=== PATIENT | female | born 1995 | race Caucasian/White ===

== ENCOUNTER → 2016-12-24 | Outpatient (REF) | payer OTHER | LOC: M LAB REF 20:05 | PROVIDERS: ATTEND Physician Assistant | DX: N39.0 Urinary tract infection, site not specified (principal) ==

== ENCOUNTER 2017-05-29 20:01 | Emergency (ER) | payer OTHER ==
[~2017-05-29] VITALS: Ht 167.6 cm; Wt 81.8 kg
[2017-05-29 20:01] VITALS: BP 137/89
[2017-05-29] MEDS ORDERED: IBUPROFEN 800 MG TAB PO ONE (21:15)
--- NOTE | 2017-05-30 07:31 | REP ---
Left wrist four views : There is no fracture or dislocation. Mineralization and joint spaces are normal. There are no calcifications or foreign bodies. Impression: Negative left wrist . Signed by Dilip Tate MD 05/30/2017 07:21 A
== END 2017-05-29 21:30 | disposition home or self-care (01) ==
LOC: M ED 20:01
DX: S63.502A Unspecified sprain of left wrist, initial encounter (principal); W00.9XXA Unspecified fall due to ice and snow, initial encounter; Y92.838 Other recreation area as the place of occurrence of the external cause; Y93.23 Activity, snow (alpine) (downhill) skiing, snowboarding, sledding, tobogganing and snow tubing; Y99.8 Other external cause status; F17.210 Nicotine dependence, cigarettes, uncomplicated

== ENCOUNTER 2017-10-04 07:27 | Emergency (ER) | payer OTHER ==
[2017-10-04] MEDS ORDERED: LIDOCAINE W/EPINEPHRINE 1% 20ML VIAL As Ordered (07:44)
[2017-10-04] MEDS: LIDOCAINE W/EPINEPHRINE 1% 20ML VIAL SC (08:05)
== END 2017-10-04 08:38 | disposition home or self-care (01) ==
LOC: M ED 07:27
DX: L02.411 Cutaneous abscess of right axilla (principal); Z87.2 Personal history of diseases of the skin and subcutaneous tissue
CPT/HCPCS: 87186

== ENCOUNTER → 2017-11-20 | Outpatient (REF) | payer OTHER | LOC: M LAB REF 19:41 | DX: N39.0 Urinary tract infection, site not specified (principal) | CPT/HCPCS: 87086 ==

== ENCOUNTER 2018-02-06 10:58 | Emergency (ER) | payer OTHER ==
[2018-02-06] MEDS: NORCO, ANEXSIA 5/325MG TABLET (HYDROcodone/ACETAMINOPHEN) PO (11:18)
== END 2018-02-06 11:40 | disposition home or self-care (01) ==
LOC: M ED 10:58
DX: S60.221A Contusion of right hand, initial encounter (principal); W22.8XXA Striking against or struck by other objects, initial encounter; Y92.009 Unspecified place in unspecified non-institutional (private) residence as the place of occurrence of the external cause; F17.200 Nicotine dependence, unspecified, uncomplicated; Z79.2 Long term (current) use of antibiotics; Z79.899 Other long term (current) drug therapy
CPT/HCPCS: 73130

== ENCOUNTER 2018-05-19 22:29 | Inpatient (IN) | payer OTHER ==
[2018-05-19 23:31] LABS: HEMOGLOBIN 13.8 g/dl (12.0-15.5); MEAN CORPUSCULAR HEMOGLOBIN 27.8 pg (27.0-33.0); MEAN CORPUSCULAR HGB CONC 32.1 g/dl (32.0-36.5); MEAN CORPUSCULAR VOLUME 86.7 fl (80.0-96.0); PLATELET COUNT, AUTOMATED 346 10^3/uL (150-450); RED BLOOD COUNT 4.96 10^6/uL (4.00-5.40); RED CELL DISTRIBUTION WIDTH 16.4 % (11.5-14.5); WHITE BLOOD COUNT 9.6 10^3/uL (4.0-10.0)
[2018-05-19 23:48] LABS: CONTROL LINE HCG INT CTR LINE PRESENT; HCG, SERUM QUALITATIVE NEGATIVE (NEGATIVE)
[2018-05-19 23:57] LABS: AMPHETAMINES LEVEL URINE NEGATIVE (NEGATIVE); BARBITURATES URINE NEGATIVE (NEGATIVE); BENZODIAZEPINES URINE NEGATIVE (NEGATIVE); CANNABINOIDS URINE NEGATIVE (NEGATIVE); COCAINE METABOLITE URINE NEGATIVE (NEGATIVE); METHADONE URINE NEGATIVE (NEGATIVE); OPIATES URINE NEGATIVE (NEGATIVE); PHENCYCLIDINE URINE NEGATIVE (NEGATIVE)
[2018-05-20 00:05] LABS: ACETAMINOPHEN LEVEL < 2.0 UG/ML (10.0-30.0); ALBUMIN 4.1 GM/DL (3.2-5.2); ALBUMIN/GLOBULIN RATIO 1.08 (1.00-1.93); ALKALINE PHOSPHATASE 97 U/L (45-117); ALT/SGPT 28 U/L (12-78); ANION GAP 10 MEQ/L (8-16); AST/SGOT 17 U/L (7-37); BILIRUBIN,DIRECT < 0.1 MG/DL (0.0-0.2); BILIRUBIN,TOTAL 0.3 MG/DL (0.2-1.0); BLOOD UREA NITROGEN 14 MG/DL (7-18); CALCIUM LEVEL 8.8 MG/DL (8.5-10.1); CARBON DIOXIDE LEVEL 24 MEQ/L (21-32); CHLORIDE LEVEL 112 MEQ/L (98-107); CREATININE FOR GFR 0.91 MG/DL (0.55-1.30); ETHYL ALCOHOL (ETHANOL) 0.261 % (0.000-0.010); GLOMERULAR FILTRATION RATE > 60.0 (>60); GLUCOSE, FASTING 104 MG/DL (70-100); POTASSIUM SERUM 4.5 MEQ/L (3.5-5.1); SALICYLATE LEVEL < 1.7 MG/DL (5.0-30.0); SODIUM LEVEL 146 MEQ/L (136-145); TOTAL PROTEIN 7.9 GM/DL (6.4-8.2)
[2018-05-20] MEDS ORDERED: MAALOX 30 ML SUSP *UDC PO (11:30)
[2018-05-20] MEDS ORDERED: MOM 30ML SUSPENSION UDC PO (11:30)
[2018-05-20] MEDS ORDERED: ACETAMINOPHEN TAB 650MG DOSE (2X325MG) PO (11:30)
[2018-05-20] MEDS ORDERED: traZODone 50 MG TAB PO (11:30)
[2018-05-20] MEDS ORDERED: LORazepam 2 MG TAB PO (11:30)
[2018-05-20] MEDS: FOLIC ACID 1 MG TAB PO (13:33)
[2018-05-20] MEDS: THIAMINE 100 MG TAB PO ×2 (13:33→21:00)
[2018-05-20] MEDS: MULTIVITAMINS/MINERALS THERAP 1 TAB PO (13:33)
[2018-05-20] MEDS: LORazepam 1 MG TAB PO (13:33)
[2018-05-21 07:40] LABS: ANION GAP 8 MEQ/L (8-16); BLOOD UREA NITROGEN 12 MG/DL (7-18); CALCIUM LEVEL 8.6 MG/DL (8.5-10.1); CARBON DIOXIDE LEVEL 25 MEQ/L (21-32); CHLORIDE LEVEL 102 MEQ/L (98-107); CREATININE FOR GFR 0.95 MG/DL (0.55-1.30); GLOMERULAR FILTRATION RATE > 60.0 (>60); GLUCOSE, FASTING 92 MG/DL (70-100); POTASSIUM SERUM 3.6 MEQ/L (3.5-5.1); SODIUM LEVEL 135 MEQ/L (136-145)
[2018-05-21] MEDS: FOLIC ACID 1 MG TAB PO (09:00)
[2018-05-21] MEDS: THIAMINE 100 MG TAB PO (09:00)
[2018-05-21] MEDS: MULTIVITAMINS/MINERALS THERAP 1 TAB PO (09:00)
[2018-05-21] MEDS: INFLUENZA QUADRIVALENT PF VACCINE 0.5ML SYRINGE (90686) IM (09:40)
== END 2018-05-21 13:45 | disposition home or self-care (01) | DRG 881 ==
LOC: M ED 22:29 → M ED INP 05-20 11:20 → M PSY 05-20 12:25
DX: F32.9 Major depressive disorder, single episode, unspecified (principal); E87.0 Hyperosmolality and hypernatremia; F10.10 Alcohol abuse, uncomplicated; F17.210 Nicotine dependence, cigarettes, uncomplicated; Z79.3 Long term (current) use of hormonal contraceptives

== ENCOUNTER → 2018-11-15 | Outpatient (CLI) | payer OTHER ==
[~2018-11-15] MED LIST: BACT800T5 PO; CLIN150C14; HYDR-3715 PO; MIRE1IUD; RIFA300C3
--- NOTE | 2018-11-15 19:49 | REP ---
REASON: Trauma. FINDINGS: No acute fracture or destructive osseous lesion. Electronically Signed by Mckinley Barkley DO 11/15/2018 07:51 P
== END ==
LOC: M LRY 18:21
PROVIDERS: ATTEND Physician Assistant
DX: S69.91XA Unspecified injury of right wrist, hand and finger(s), initial encounter (principal); X58.XXXA Exposure to other specified factors, initial encounter; Y92.89 Other specified places as the place of occurrence of the external cause
CPT/HCPCS: 73140; J1885

== ENCOUNTER 2019-02-27 09:32 | Emergency (ER) | payer OTHER ==
[~2019-02-27] VITALS: Ht 167.6 cm; Wt 102.3 kg
[2019-02-27] MEDS ORDERED: NS 1,000 ML IV ONE (10:00)
[2019-02-27] MEDS ORDERED: ONDANSETRON 4MG/2ML VIAL (J2405) IV ONE (10:00)
[2019-02-27] MEDS ORDERED: PRED20TA PO (10:11)
[2019-02-27] MEDS ORDERED: LORA-674 PO (10:11)
[2019-02-27] MEDS ORDERED: LORATADINE 10 MG TAB PO ONE ×2 (10:15→11:15)
[2019-02-27 10:26] LABS: BASO % 0.2 % (0.0-1.0); EOS % 0.2 % (0.0-3.0); HEMATOCRIT 43.1 % (36.0-47.0); HEMOGLOBIN 14.4 g/dl (12.0-15.5); LYMPH # 2.1 10^3/uL (1.5-5.0); LYMPH % 25.9 % (24.0-44.0); MEAN CORPUSCULAR HEMOGLOBIN 29.6 pg (27.0-33.0); MEAN CORPUSCULAR HGB CONC 33.4 g/dl (32.0-36.5); MEAN CORPUSCULAR VOLUME 88.7 fl (80.0-96.0); MONO # 0.5 10^3/uL (0.0-0.8); MONO % 6.3 % (0.0-5.0); NEUTROPHILS # 5.5 10^3/uL (1.5-8.5); NEUTROPHILS % 67.2 % (36.0-66.0); PLATELET COUNT, AUTOMATED 244 10^3/uL (150-450); RED BLOOD COUNT 4.86 10^6/uL (4.00-5.40); WHITE BLOOD COUNT 8.3 10^3/uL (4.0-10.0)
[2019-02-27 10:59] LABS: BILIRUBIN,DIRECT 0.3 MG/DL (0.0-0.2); BILIRUBIN,TOTAL 1.2 MG/DL (0.2-1.0); TOTAL PROTEIN 7.5 GM/DL (6.4-8.2)
[2019-02-27] MEDS ORDERED: AZIT-12 PO (11:06)
[2019-02-27] MEDS ORDERED: POTASSIUM CHLORIDE 10 MEQ SR TABLET PO ONE (11:15)
[2019-02-27 11:47] LABS: INFLUENZA A AMPLIFICATION NEGATIVE (NEGATIVE); INFLUENZA B AMPLIFICATION NEGATIVE (NEGATIVE)
[2019-02-27] MEDS ORDERED: SLOWTAB2 PO (12:23)
[2019-02-27 12:52] VITALS: BP 143/77
[2019-03-03 00:06] LABS: BORDETELLA PERTUSSIS ABY IgA <1.0 index (0.0-0.9); BORDETELLA PERTUSSIS ABY IgG 2.21 index (0.00-0.94); BORDETELLA PERTUSSIS ABY IgM 3.2 index (0.0-0.9)
[2019-03-03 00:06] LABS: BORDETELLA PARAPERTUSSIS PCR Negative (Negative); BORDETELLA PERTUSSIS BY PCR Negative (Negative)
== END 2019-02-27 12:54 | disposition home or self-care (01) ==
LOC: M ED 09:32 → EDBD 09:32 → M ED 12:54
DX: R11.2 Nausea with vomiting, unspecified (principal); R05 Cough; Z20.828 Contact with and (suspected) exposure to other viral communicable diseases; E87.6 Hypokalemia; E83.42 Hypomagnesemia; E80.6 Other disorders of bilirubin metabolism; R10.10 Upper abdominal pain, unspecified; Z97.5 Presence of (intrauterine) contraceptive device
CPT/HCPCS: 80047; 80076; 83690; 83735; 84702; 85025; 86615; 87502; 87798; 96361; 96374; 99284; J2405

== ENCOUNTER 2019-06-27 20:08 | Emergency (ER) | payer OTHER ==
[~2019-06-27] VITALS: Ht 167.6 cm; Wt 95.5 kg
[~2019-06-27 20:08] MED LIST changes: +AZIT-12 PO; +LORA-674 PO; +PRED20TA PO; +SLOWTAB2 PO
[2019-06-27 20:36] LABS: BASO % 0.3 % (0.0-1.0); EOS % 0.4 % (0.0-3.0); HEMOGLOBIN 15.9 g/dl (12.0-15.5); LYMPH # 2.5 10^3/uL (1.5-5.0); MEAN CORPUSCULAR HEMOGLOBIN 33.6 pg (27.0-33.0); MEAN CORPUSCULAR HGB CONC 33.8 g/dl (32.0-36.5); MEAN CORPUSCULAR VOLUME 99.4 fl (80.0-96.0); MONO # 0.8 10^3/uL (0.0-0.8); MONO % 10.2 % (0.0-5.0); NEUTROPHILS # 4.1 10^3/uL (1.5-8.5); NEUTROPHILS % 54.6 % (36.0-66.0); PLATELET COUNT, AUTOMATED 216 10^3/uL (150-450); RED BLOOD COUNT 4.73 10^6/uL (4.00-5.40); WHITE BLOOD COUNT 7.5 10^3/uL (4.0-10.0)
[2019-06-27 20:58] LABS: ALBUMIN 4.3 GM/DL (3.2-5.2); ALT/SGPT 113 U/L (12-78); BILIRUBIN,DIRECT 0.5 MG/DL (0.0-0.2); BILIRUBIN,TOTAL 1.6 MG/DL (0.2-1.0); BLOOD UREA NITROGEN 10 MG/DL (7-18); CALCIUM LEVEL 9.3 MG/DL (8.5-10.1); CARBON DIOXIDE LEVEL 18 MEQ/L (21-32); CHLORIDE LEVEL 103 MEQ/L (98-107); CREATININE FOR GFR 0.94 MG/DL (0.55-1.30); GLOMERULAR FILTRATION RATE > 60.0 (>60); GLUCOSE, FASTING 89 MG/DL (70-100); LIPASE 218 U/L (73-393); SODIUM LEVEL 135 MEQ/L (136-145)
[2019-06-27 21:23] LABS: INFLUENZA A AMPLIFICATION NEGATIVE (NEGATIVE); INFLUENZA B AMPLIFICATION NEGATIVE (NEGATIVE)
[2019-06-27] MEDS ORDERED: ONDANSETRON 4MG/2ML VIAL (J2405) IV ONE (21:30)
[2019-06-27] MEDS ORDERED: NS 1,000 ML IV ONE (21:30)
--- NOTE | 2019-06-27 22:59 | REPVR ---
PROCEDURE INFORMATION: Exam: US Abdomen Limited, Right Upper Quadrant Exam date and time: 06/27/2019 10:26 PM Age: 23 years old Clinical indication: Nausea and vomiting; Abdominal pain; Epigastric; Additional info: Ruq pain, epigastric pain TECHNIQUE: Imaging protocol: Real-time ultrasound of the abdomen with image documentation. Examination was focused on the right upper quadrant. COMPARISON: No relevant prior studies available. FINDINGS: Liver: Hepatic steatosis. Gallbladder: Gallbladder sludge. Common bile duct: Normal. No stones. No dilation. Pancreas: Visualized pancreas is unremarkable. Right kidney: Unremarkable 10.7 cm right kidney. IMPRESSION: No sonographic evidence for acute cholecystitis. Electronically signed by: Kwesi Son On 06/27/2019 22:59:45 PM
[2019-06-27] MEDS ORDERED: METOCLOPRAMIDE INJ 10MG/2ML VIAL (J2765) IV ONE (23:15)
[2019-06-27] MEDS ORDERED: ZOFR8TAB24 PO (23:54)
[2019-06-28 00:02] VITALS: BP 135/98
[2019-06-29 11:12] LABS: HEPATITIS A ANTIBODY IGM NEGATIVE (NEGATIVE)
== END 2019-06-28 00:05 | disposition home or self-care (01) ==
LOC: M ED 20:08
DX: K82.9 Disease of gallbladder, unspecified (principal); Z97.5 Presence of (intrauterine) contraceptive device; F17.210 Nicotine dependence, cigarettes, uncomplicated
CPT/HCPCS: 76705; 80048; 80076; 81001; 83690; 84702; 85025; 86709; 87088; 87186; 87502; 96361; 96374; 96375; 99284; J2405; J2765